=== PATIENT | female | born 1975 | race Caucasian/White ===

== ENCOUNTER 2020-10-01 14:07 | Outpatient (CLI) | payer BC, SELFPAY ==
--- NOTE | ~2020-10-01 | DEXA_ITS ---
Bone Density Report Name: Jodi Appiah Age: 45 Sex: Female Ethnicity: White Date of : 1975 Indication: nursing home use of contraception Referring Provider: LYNN, ALBER Study: Bone densitometry was performed. Exam Date: October 01, 2020 Accession number: [id number] Bone Density: Region BMD T-score Z-score Classification AP Spine (L1-L4) 1.030 -0.2 0.3 Normal Femoral Neck (Left) 0.892 0.4 0.8 Normal Total Hip (Left) 1.142 1.6 1.9 Normal Total Hip Bilateral Avg 1.133 1.6 1.9 Normal Femoral Neck (Right) 0.865 0.1 0.5 Normal Total Hip (Right) 1.123 1.5 1.8 Normal World Health Organization criteria for BMD impression classify patients as: Normal (T-score at or above -1.0), Osteopenia (T-score between -1.0 and -2.5), or Osteoporosis (T-score at or below -2.5). 10-year Fracture Risk: FRAX not reported because: Premenopausal woman All T-scores for Spine Total, Hip Total, Femoral Neck at or above -1.0 Clinical Information Provided by Patient: Smokes Has used the following medications: Vitamin D, depo x2 wks Patient maximum height was 63.5 No regular weight bearing exercise Does not regularly consume dairy products Drinks caffeinated beverages Onset of menses at age 11 Premenopausal Number of children 2 Impression: The patient's bone mass is within expected range for age, gender and ethnicity. The patient has risk factors, including: smoking. Discussion: BONE DENSITY IS WITHIN EXPECTED LIMITS FOR AGE, SEX AND RACE. Bone density is within expected limits for age, sex and race at all sites measured. The patient should follow a healthful lifestyle (good nutrition with adequate calcium and vitamin D, and appropriate weight-bearing exercise). Follow-Up: Consider repeating this study in 5 years or sooner if there is some new clinical indication. Reported by: [facility] on 10/01/2020 2:39:00 PM. Reviewed, dictated and finalized at location ALeida ANTONIO
--- NOTE | ~2020-10-01 | MM_ITS ---
EXAMINATION: MM screening jessica BI w boby HISTORY: Screening mammogram TECHNIQUE: Craniocaudal and mediolateral oblique 3-D tomosynthesis images were obtained and synthetic 2-D images were generated. CAD analysis was submitted and interpreted. COMPARISON: None, baseline BREAST PARENCHYMAL COMPOSITION: The breasts are heterogeneously dense, which may obscure small masses . FINDINGS: There is no evidence of suspicious mass, calcification, or architectural distortion to sugg est malignancy in either breast. There has been no suspicious interval change. IMPRESSION: 1. No mammographic evidence of malignancy. 2. Recommend routine screening mammography in one year. BI-RADS Category 1: Negative Reviewed, dictated and finalized at location A. ARE [employer] WORK[employer]
== END 2020-10-01 14:08 | disposition home or self-care (01) ==
PROVIDERS: PCP Family Medicine; Visit Provider Nurse Practitioner
DX: Z12.31 Encounter for screening mammogram for malignant neoplasm of breast (principal); Z13.820 Encounter for screening for osteoporosis; M81.0 Age-related osteoporosis without current pathological fracture; Z51.81 Encounter for therapeutic drug level monitoring; Z79.3 Long term (current) use of hormonal contraceptives
CPT/HCPCS: 77063; 77067; 77080

== ENCOUNTER 2021-02-04 09:22 | Emergency (ER) | payer BC, SELFPAY ==
--- NOTE | 2021-02-04 09:32 | ED.GENADULT ---
HPI - General Adult General Chief complaint: Chest Pain Stated complaint: SOB/CHEST PAIN Time Seen by Provider: 02/04/21 09:23 Source: patient and RN notes reviewed Mode of arrival: ambulatory Limitations: no limitations History of Present Illness HPI narrative: 45-year-old female presents with complaints of intermittent body aches, shortness of breath, chest pain, and headache (not the worst of her life) 50 minutes prior to [facility] to [facility]. Jodi reports receiving Depo-Provera at 07:54 this morning, symptoms started at 08:32, receiving Depo-Provera for 25 years to prevent . Benadryl 50mg at 08:50am, no relief. Denies difficulty swallowing and edema. No swelling, burning, bleeding, or drainage. Denies fever, chills, weakness, fatigue, myalgia, facial swelling, or tongue swelling. Denies nausea, vomiting, dizziness, lightheadedness, wheezing, syncopal episodes, or seizure activities. Tolerating po intake well. The patient reports she have not been diagnosed with COVID-19. The patient reports she received second COVID-19 vaccine on 01/29/2021. The patient reports she is not waiting for the results of a COVID-19 lab test. The patient reports she do not have a new or worsening cough. The patient reports she do not have any rhinorrhea, congestion, loss of taste, sore throat, abdominal pain, and diarrhea. Denies recent traveling. Denies concerns for COVID-19 or exposures been home with limited outdoor exposure except for essential household needs, work, and return home. At this time, patient is not suspected of having COVID-19. Some parts of this dictation were generated by voice recognition software and may contain typographical and/or grammatical inaccuracies. Related Data Home Medications Medication Instructions Recorded Confirmed ergocalciferol (vitamin D2) 02/04/21 Allergies Allergy/AdvReac Type Severity Reaction Status Date / Time latex Allergy Intermediate Verified 04/24/17 20:28 butorphanol Allergy Mild Unverified 04/24/17 20:28 Review of Systems Review of Systems: Narrative: CONSTITUTIONAL: Denies fever, chills, sweats. EYES: Denies visual changes, redness, discharge. ENT: Denies rhinorrhea, congestion, sore throat, otalgia. CARDIOVASCULAR: Denies chest pain, palpitations, edema. RESPIRATORY: Denies wheezing, cough. Complains of dyspnea. GASTROINTESTINAL: Denies abdominal pain, nausea, vomiting, diarrhea. GENITOURINARY: Denies dysuria, hematuria, abnormal discharge. SKIN: Denies rash, itching, or drainage. Complains of feeling as if hair is growing. MUSCULOSKELETAL: Complains of acute back pain. Denies joint pain or myalgia. NEUROLOGIC: Denies numbness or focal weakness. Complains of AMEZCUA. PSYCHIATRIC: Denies anxiety or depression. All systems reviewed & are unremarkable except as noted in HPI and below. [facility] Past Medical History Medical History Asthma Hx of migraines Obese Smoker Surgical History Surgical History (Updated 02/04/21 @ 11:30 by MUKUND Urias) No significant past surgical history Family History Family History (Updated 02/04/21 @ 11:30 by MUKUND Urias) Father Unknown family medical history Mother Hypertension Social History Social History (Updated 02/04/21 @ 11:32 by MUKUND Urias) Smoking packs per day: 0.5 Smoking cigarettes per day: 10.0 Years smoked: 25 Smoking pack-years: 12.50 Smoking status: Current every day smoker Tobacco type: cigarettes Second hand tobacco smoke exposure: Yes (spouse) Alcohol intake: former Alcohol use details: Jodi reports quit 10 years ago Substance use: never Living arrangements: with family Occupation/Education: occupation Gender identity (if verbalized by the patient): Female Sexual Orientation (if Verbalized by the Patient): Straight or Heterosexual Comments At time of signature, agree with nurse past medical, surgical, social, and family h
[2021-02-04 09:45] VITALS: BP 123/71; PULSE 82; RESP 20; TEMP 36.7; O2SAT 100
--- NOTE | 2021-02-04 09:45 | ECG_ITS ---
Measurements Intervals [place] Rate: 83 P: 49 OR: 163 QRS: -1 QRSD: 92 T: 40 QT: 356 QTc: 420 Interpretive Statements SINUS RHYTHM INCOMPLETE RIGHT BUNDLE BRANCH BLOCK BASELINE ARTIFACT- I, II, III, AVR, AVL, AVF, V2, V4-V5 BORDERLINE ECG Electronically Signed On 02-04-2021 11:13:34 CDT by Kraig Burleson D.O.
--- NOTE | 2021-02-04 10:11 | PC.NURSE ---
Patient much calmer. Resting easily. Got up and walked to bathroom without difficulty. Pain is less. No shortness of breath
--- NOTE | 2021-02-04 10:22 | PC.NURSE ---
Dozing. No pain. No anxiety. Feels much improved.
== END 2021-02-04 10:30 | disposition home or self-care (01) ==
PROVIDERS: Emergency Provider Nurse Practitioner Family; PCP Family Medicine
DX: F41.9 Anxiety disorder, unspecified (principal); M79.10 Myalgia, unspecified site; R06.02 Shortness of breath; R07.9 Chest pain, unspecified; R51.9 Headache, unspecified; T50.905A Adverse effect of unspecified drugs, medicaments and biological substances, initial encounter; I45.10 Unspecified right bundle-branch block
CPT/HCPCS: 93005; 99213; G0463

== ENCOUNTER 2021-04-22 12:26 | Outpatient (CLI) | payer BC, SELFPAY ==
--- NOTE | 2021-04-22 | ECHO_ITS ---
Patient Info Name: Jodi Appiah Age: 46 years : 1975 Gender: Female Ht: 63 in Wt: 200 lbs BSA: 2.05 m2 HR: 70 bpm BP: 120 / 85 mmHg Technical Quality: Good Exam Date: 04/22/2021 12:55 PM Exam Location: [facility] Pulmonary Patient Status: Outpatient Admit Date: 04/22/2021 Staff Ordering Physician: Caleb, Karoline Cuevas MD Nurse Head: Jolene Cardenas RDCS Attending Provider: Caleb, Karoline Cuevas MD Referring Physician: Caleb WALLACE; Exam Type: CA echo doppler color flow Study Info Indications R55 - Syncope and collapse Complete two-dimensional, color flow and Doppler transthoracic echocardiogram is performed. Summary 1. Complete two-dimensional, color flow and Doppler transthoracic echocardiogram is performed. 2. E/e' 5 is not elevated. 3. Global longitudinal strain is normal at -19.2%. 4. No pulmonary hypertension, estimated pulmonary arterial systolic pressure is 25 mmHg. Left Ventricle E/e' 5 is not elevated. Global longitudinal strain is normal at -19.2%. Left ventricular chamber dimension is normal. Left ventricular systolic function is normal, estimated at 60-65%. The left ventricular diastolic function is normal. Right Ventricle Right ventricular chamber dimension is normal. Right ventricular systolic function is normal. Left Atria Left atrial chamber dimension is normal. Right Atria Right atrial chamber dimension is normal. Aortic Valve The aortic valve is trileaflet. There is no aortic valve stenosis. There is no aortic valve regurgitation. Pulmonic Valve There is no pulmonic regurgitation. Mitral Valve There is no mitral valve stenosis. There is no mitral valve regurgitation. Tricuspid Valve There is no tricuspid valve regurgitation. No pulmonary hypertension, estimated pulmonary arterial systolic pressure is 25 mmHg. Pericardium/Pleural There is no pericardial effusion. Inferior Vena Cava Normal inferior vena cava with >50% collapse upon inspiration consistent with normal right atrial pressure, 5 mmHg. Aorta The aortic root size at the sinus of Valsalva is normal. Left Ventricular Outflow Tract Name Value Normal LVOT 2D LVOT Diameter 2.0 cm LVOT Doppler LVOT Peak Gradient 3 mmHg LVOT Mean Gradient 2 mmHg LVOT VTI 19 cm LVOT VTI/AV VTI Ratio 1.0 LVOT Stroke Volume 62 ml LVOT CO 4.7 l/min LVOT CI 2.3 l/min/m2 Pulmonic Valve Name Value Normal RVOT Doppler RVOT Peak Gradient 2 mmHg PV Doppler PV Peak Gradient 4 mmHg Mitral Valve
== END 2021-04-22 12:27 | disposition home or self-care (01) ==
LOC: ANHCARD 12:28
PROVIDERS: PCP Family Medicine; Visit Provider Family Medicine
DX: R55 Syncope and collapse (principal)
CPT/HCPCS: 93306

== ENCOUNTER 2021-06-21 14:05 | Emergency (ER) | payer BC, SELFPAY ==
--- NOTE | ~2021-06-21 | XR_ITS ---
EXAMINATION: XR chest 2V DATE: 06/21/2021 15:58 INDICATION: Cough and headache TECHNIQUE: AP and lateral views of the chest are obtained. COMPARISON: 04/24/2017 FINDINGS: There are minimal airspace opacities of the lung bases. There is no pleural effusion or pne umothorax. The cardiomediastinal silhouette is normal. There is mild thoracic spondylosis. IMPRESSION: 1. Minimal bibasilar airspace opacity, consistent with atelectasis versus pneumonia. Reviewed, dictated and finalized at location A. IMPRESSION: 1. Minimal bibasilar airspace opacity, consistent with atelectasis versus pneum onia.
[2021-06-21 14:21] VITALS: BP 125/112; PULSE 77; RESP 18; TEMP 36.9; O2SAT 100
[2021-06-21 14:39] LABS: Basophils Absolute Auto 0.1 K/mm3 (0.0-0.1); Basophils Percent Auto 0.6 % (0.2-1.2); Eosinophils Absolute Auto 0.3 K/mm3 (0-0.3); Eosinophils Percent Auto 4.3 % (0-4.4); Hematocrit 45.8 % (37.0-47.0); Hemoglobin 14.9 g/dL (12.0-15.0); Immature Granulocyte Absolute 0.03 K/mm3 (0.00-0.031); Immature Granulocyte Percent A 0.4 % (0-0.5); Lymphocytes Absolute Auto 2.04 K/mm3 (0.9-3.2); Lymphocytes Percent Auto 25.6 % (18.3-44.2); Mean Corpuscular HGB Conc 32.5 g/dl (32-36); Mean Corpuscular Hemoglobin 28.7 pg (26-34); Mean Corpuscular Volume 88.1 fl (80-100); Mean Platelet Volume 10.2 fl (7.4-10.4); Monocytes Absolute Auto 0.5 K/mm3 (0.1-0.6); Monocytes Percent Auto 6.2 % (2.6-8.5); Neutrophils Percent Auto 62.9 % (45.5-73.1); Platelet Count Result 310 k/mm3 (150-375); Red Cell Distribution Width 13.2 % (11.5-14.5)
[2021-06-21 15:20] LABS: Alanine Aminotransferase 21 U/L (4-35); Albumin Level 4.6 g/dL (3.5-5.1); Alkaline Phosphatase 64 U/L (38-126); Anion Gap 11 mmol/L (8-16); Aspartate Amino Transferase 20 U/L (14-36); Bilirubin,Total 0.8 mg/dL (0.2-1.3); Blood Urea Nitrogen 5 mg/dL (7-17); Calcium 9.9 mg/dL (8.4-10.2); Carbon Dioxide 25 mmol/L (22-30); Chloride 104 mmol/L (98-107); Estimated CRCL calculation 93 ml/min; Estimated Glomerular Filt Rate > 60; Glucose 102 mg/dL (65-110); Potassium 3.7 mmol/L (3.4-5.0); Sodium 140 mmol/L (137-145)
[2021-06-21] MEDS: PROCHLORPERAZINE EDISYLATE 10 MG/2 ML VIAL IV PUSH (15:56)
[2021-06-21] MEDS: ACETAMINOPHEN 500 MG TABLET 1000 MG PO (15:56)
[2021-06-21] MEDS: SODIUM CHLORIDE 0.9% IV 1,000 ML 999 ML IV CONT (15:56)
[2021-06-21] MEDS: KETOROLAC 30 MG/ML VIAL (*BKC) (15:56)
[2021-06-21] MEDS: diphenhydrAMINE HCl INJ 50 MG/ML VIAL 25 MG IV PUSH (15:57)
[2021-06-21 16:23] LABS: Lipase 413 U/L (23-300)
--- NOTE | 2021-06-21 16:35 | ED.HA ---
HPI - Headache General Chief Complaint: Headache Stated Complaint: Headache, vomiting Time Seen by Provider: 06/21/21 15:33 History of Present Illness HPI Narrative: Patient presents with headache. Patient reports she has had cough congestion for the past few days Primary care doctor and was started on antibiotics. Since taking antibiotics feels her symptoms of gotten worse her headache is been getting worse and is now associated with nausea and vomiting. she reports history of migraines however today symptoms are worse than her prior migraines. Headache is exacerbated by bright lights loud noises. She denies any changes in vision, change in hearing, focal numbness or weakness Related Data Home Medications Medication Instructions Recorded Confirmed ergocalciferol (vitamin D2) 02/04/21 ubrogepant [Ubrelvy] mg 06/21/21 Allergies Allergy/AdvReac Type Severity Reaction Status Date / Time butorphanol Allergy Mild Unknown Verified 06/21/21 15:23 Review of Systems Review of Systems: CONSTITUTIONAL: Short subjective chills EYES: Denies visual changes, redness, or discharge. ENT: She reports cough, congestion CARDIOVASCULAR: Denies chest pain, palpitations, or edema. RESPIRATORY: Denies cough or dyspnea. GASTROINTESTINAL: Denies abdominal pain GENITOURINARY: Denies dysuria or hematuria. SKIN: Denies rash or itching. MUSCULOSKELETAL: Denies back pain, joint pain, or myalgia. NEUROLOGIC: Denies headache, numbness, dizziness, or weakness. PSYCHIATRIC: Denies anxiety or depression. All systems reviewed & are unremarkable except as noted in HPI and below PMFSH Past Medical History Medical History Asthma Hx of migraines Obese Smoker Surgical History Surgical History (Updated 02/04/21 @ 11:30 by MUKUND Urias) No significant past surgical history Family History Family History (Updated 02/04/21 @ 11:30 by MUKUND Urias) Father Unknown family medical history Mother Hypertension Social History Social History (Updated 02/04/21 @ 11:32 by MUKUND Urias) Smoking packs per day: 0.5 Smoking cigarettes per day: 10.0 Years smoked: 25 Smoking pack-years: 12.50 Smoking status: Current every day smoker Tobacco type: cigarettes Second hand tobacco smoke exposure: Yes (spouse) Alcohol intake: former Alcohol use details: Jodi reports quit 10 years ago Substance use: never Gender identity (if verbalized by the patient): Female Exam Narrative: GENERAL: Well-appearing, well-nourished, and in no acute distress. HEAD: Normocephalic, atraumatic. EYES: PERRLA and EOMI. ENT: Mucous membranes moist. Oropharynx without tonsillar hypertrophy exudate or other lesions. NECK: Supple. No adenopathy or masses. No JVD CHEST: Clear to auscultation. No respiratory distress. No wheezes rales or rhonchi HEART: Regular rate and rhythm. No murmur heard. Normal peripheral pulses. ABDOMEN: Soft, nontender, nondistended, normal active bowel sounds. EXTREMITIES: Normal range of motion. No edema. SKIN: Warm, dry, no rash. NEURO: Cranial nerves II through XII intact, 5 out of 5 strength in all extremities sensation intact to light touch in all extremities. Alert and oriented x3. PSYCH: Normal mood and affect. Course Reevaluation(s) Reevaluation #1: Patient reports feeling much improved labs and plan reviewed with patient Date: 06/21/21 Time: 17:33 Vital Signs Vital signs: Vital Signs Temperature 36.9 C 06/21/21 14:21 Pulse Rate 77 06/21/21 14:21 Respiratory Rate 18 06/21/21 14:21 Blood Pressure 125/112 H 06/21/21 14:21 Pulse Oximetry 100 06/21/21 14:21 Temperature 36.9 C 06/21/21 14:21 Pulse Rate 77 06/21/21 14:21 Respiratory Rate 16 06/21/21 17:50 Blood Pressure 128/75 06/21/21 17:50 Pulse Oximetry 98 06/21/21 17:50 MDM - Headache MDM Narrative Medical decision making narrative: H&P as above, vss, pt looks clinically w
[2021-06-21 17:50] VITALS: BP 128/75; RESP 16; O2SAT 98
[2021-06-22 18:06] LABS: SARS-CoV-2 RNA PCR Negative
== END 2021-06-21 17:51 | disposition home or self-care (01) ==
PROVIDERS: Emergency Medicine; Emergency Provider Emergency Medicine; PCP Family Medicine
DX: G43.909 Migraine, unspecified, not intractable, without status migrainosus (principal); J18.9 Pneumonia, unspecified organism; Z20.822 Contact with and (suspected) exposure to COVID-19; J45.909 Unspecified asthma, uncomplicated; F17.210 Nicotine dependence, cigarettes, uncomplicated
CPT/HCPCS: 36415; 71046; 80053; 83690; 85025; 96374; 96375; 99284; A9270; C9803; J0780; J1200; J1885; J7030; U0003; U0005

== ENCOUNTER 2021-06-22 04:50 | Observation (INO) | payer BC, SELFPAY ==
[2021-06-22] VITALS (9 sets, daily range): BP systolic 107–119; BP diastolic 50–90; PULSE 64–90; RESP 14–16; TEMP 36.2–37.1; O2SAT 95–100; BMI 38.2
--- NOTE | ~2021-06-22 | CT_ITS ---
EXAMINATION: CT brain wo con DATE: 06/22/2021 07:47 INDICATION: Headache TECHNIQUE: Computed tomography (CT) of the head was performed without intravenous contrast. Sagittal and coronal reconstructions were performed. The mA was adjusted according to patient size. Iterative reconstruction technique was employed. The dose-length product was 605.33 mGy-cm. COMPARISON: None FINDINGS: No acute intracranial hemorrhage, acute infarction or abnormal extra axial fluid collection. Ventricl es are normal and symmetric. No mass/mass effect. The orbits and mastoid air cells are normal. Exten sive sinus disease including some bubbly mucus in the right sphenoid sinus, near complete opacificati on of the left maxillary sinus and several left-sided ethmoid air cells and additional mucosal thicke vipul, moderate in the left maxillary sinus and mild in the remaining paranasal sinuses. Postoperative changes of bilateral maxillary sinus antral window procedures. IMPRESSION: 1. Extensive sinusitis most prominent in the left sphenoid and ethmoid sinuses. 2. Normal brain. No acute intracranial process. Reviewed, dictated and finalized at location A.
--- NOTE | ~2021-06-22 | CT_ITS ---
EXAMINATION: CT sinus wo con DATE: 06/23/2021 13:24 INDICATION: Frontal headache, pressure. Sinusitis. Photophobia. TECHNIQUE: Computed tomography (CT) of the paranasal sinuses was performed without contrast. Iterativ e reconstruction technique was employed. Exam dose: 269.96 mGy-cm total exam DLP. COMPARISON: None FINDINGS: There is rightward deviation of the nasal septum and a prominent bony spur projecting right roque from the nasal septum. There is prominent asymmetric soft tissue swelling of the left middle and inferior nasal turbinates. Majo bullosa of the middle nasal turbinates. Interlamellar cell of both middle nasal turbinates, opacified on the left. There is bilateral frontoethmoid soft tissue thickening. There is opacification of ethmoid air cells laterally, particularly prominent on the left. There is complete opacification of the left ostiomeatal unit and severe mucoperiosteal thickening of the left maxillary sinus. There is mild soft tissue thickening at the right maxillary ostium and right infundibulum. There is m ild focal mucoperiosteal thickening of the right maxillary sinus. There is near-complete complete opacification of left sphenoid sinus and mild mucoperiosteal thickeni ng of the right sphenoid sinus. The mastoid air cells are better developed on the right and largely well aerated bilaterally. IMPRESSION: Rightward deviation spurring of the nasal septum Bilateral majo bullosa and interlamellar cell of the middle nasal turbinates; opacified interlamell ar cell on the left Asymmetric soft tissue swelling of the left middle and inferior nasal turbinates Mild soft tissue thickening in the region of the right maxillary ostium and infundibulum Complete opacification of the left ostiomeatal unit Soft tissue thickening of the region of both frontoethmoid recesses Mild right and extensive left ethmoid air cell opacification Mild focal right maxillary sinus mucoperiosteal thickening; severe left maxillary mucoperiosteal thic kening Complete opacification of left sphenoid sinus; mild mucoperiosteal thickening of the right sphenoid s inus Reviewed, dictated and finalized at Location A. Reviewed, dictated and finalized at location B. IMPRESSION: Rightward deviation spurring of the nasal septum Bilateral majo bullosa and interlamellar cell of the middle nasal turbinates; opacified interlamellar cell on the left Asymmetric soft tissue swelling of the left middle and inferior nasal turbinate s Mild soft tissue thickening in the region of the right maxillary ostium and inf undibulum Complete opacification of the left ostiomeatal unit Soft tissue thickening of the region of both frontoethmoid recesses Mild right and extensive left ethmoid air cell opacification Mild focal right maxillary sinus mucoperiosteal thickening; severe left maxilla ry mucoperiosteal thickening Complete opacification of left sphenoid sinus; mild mucoperiosteal thickening o f the right sphenoid sinus
--- NOTE | 2021-06-22 06:22 | PC.NURSE ---
pt ambulated up to intake desk w/ no difficulties w/ no mask on. this rn asked pt to please put her mask back on her face appropriately. pt placed mask back on her face and then just stared at this rn. this rn informed pt that as soon as we can get her back to a room that we will. pt ambulated back to her seat w/ no difficulties.
--- NOTE | 2021-06-22 07:30 | PC.NURSE ---
bedside report from FEDERICO Levy. care assumed at this time.
--- NOTE | 2021-06-22 07:33 | PC.NURSE ---
pt stating she can't think straight d/t head pain when asked by this RN if she would like to fill out consent for LP. this procedure was explained by EDP.
[2021-06-22] MEDS: diphenhydrAMINE HCl INJ 50 MG/ML VIAL 25 MG IV PUSH (07:42)
[2021-06-22] MEDS: SODIUM CHLORIDE 0.9% IV 1,000 ML 999 ML IV CONT ×2 (07:42)
--- NOTE | 2021-06-22 07:46 | PC.NURSE ---
EDP made aware pt not signing consent or refusal at this time.
[2021-06-22] MEDS: PROCHLORPERAZINE EDISYLATE 10 MG/2 ML VIAL IV PUSH (07:54)
--- NOTE | 2021-06-22 07:54 | ED.HA ---
HPI - Headache General Chief Complaint: Headache Stated Complaint: migraine Time Seen by Provider: 06/22/21 07:08 Source: patient, RN notes reviewed and old records reviewed Mode of arrival: ambulatory Limitations: no limitations History of Present Illness HPI Narrative: This is a 46 year old female with history of migraine headaches who presents for evaluation of a headache. She reports constant diffuse headache for 2 days. She reports having migraine headaches for years but this headache is more severe in its intensity. She took Tylenol 4 hours ago for her pain. She was evaluated in ED yesterday for her headache. She was given IVF and medication. She states her pain was only mild better but when she returned home her headache became worse again. She reports associated runny nose, congestion, nausea and vomiting. She also reports blurred vision. She is unsure if she has had an imaging or testing for her migraines but she takes Ubrelvy. Headache is 10/10. Related Data Home Medications Medication Instructions Recorded Confirmed ergocalciferol (vitamin D2) 1,250 mcg PO 2XW 02/04/21 06/22/21 ubrogepant [Ubrelvy] 100 mg PO DAILY PRN 06/21/21 06/22/21 albuterol sulfate 1 puff INHALATION TID PRN 06/22/21 06/22/21 escitalopram oxalate 20 mg PO QAM 06/22/21 06/22/21 ondansetron 4 mg PO Q8H PRN 06/22/21 06/22/21 topiramate 100 mg PO HS 06/22/21 06/22/21 Allergies Allergy/AdvReac Type Severity Reaction Status Date / Time butorphanol Allergy Mild Unknown Verified 06/22/21 12:37 Review of Systems Review of Systems: All systems reviewed & are unremarkable except as noted in HPI and below PMFSH Past Medical History Medical History Asthma COVID-19 vaccine series completed (~12/2020) Maderna Migraines Obese Smoker Surgical History Surgical History No significant past surgical history Family History Family History (Updated 06/22/21 @ 14:57 by Marzena Eldridge DO) Father No significant past medical history Mother Hypertension Grandparent Breast cancer Social History Social History (Updated 06/22/21 @ 15:05 by Marzena Eldridge DO) Social History: She lives in [facility] with her of 5 years. She has a 26-year-old son who is healthy. She has smoked a half a pack of cigarettes per day since she was a teenager. She used to intermittently drink heavy in her younger years but has not drank any alcohol in at least 10 years. She is employed as a banker. Primary care physician: Dr. Karoline Ellis Code status: Full code Surrogate decision maker: Smoking packs per day: 0.5 Smoking cigarettes per day: 10.0 Years smoked: 25 Smoking pack-years: 12.50 Smoking status: Current every day smoker Tobacco type: cigarettes Second hand tobacco smoke exposure: Yes (spouse) Alcohol intake: former Alcohol use details: Jodi reports quit 10 years ago Substance use: never Gender identity (if verbalized by the patient): Female Spiritual care concerns: No Exam Const: General: no acute distress and alert Orientation/consciousness: patient oriented x3 HENMT: Head: normocephalic and atraumatic Ears: TM's normal bilaterally General nose exam: Abnormal mucous membranes and turbinates present Face and sinus: sinus tenderness frontal (left) and maxillary (left) Mouth: Yes Normal oral and palatal mucosa present, Yes lip normal, Yes oropharynx normal and Yes moist mucous membranes Throat: posterior oropharynx normal Eyes: Pupils: Equal, round and reactive pupils present EOM: EOMs intact bilaterally Neck: Neck: normal visual inspection Chest: Chest palpation & inspection: normal inspection of the chest Resp: Effort & Inspection: normal respiratory effort and no retractions Auscultation: clear to auscultation bilaterally Cardio: Rate: regular rate Rhythm: regular rhythm Heart mili
[2021-06-22] MEDS: KETOROLAC 30 MG/ML VIAL (*BKC) IV PUSH ×2 (09:18→14:20)
[2021-06-22] MEDS: HYDROmorphone HCL INJ (*CRX) 1 MG/ML SYR IV PUSH (09:22)
[2021-06-22 09:52] LABS: Basophils Absolute Auto 0.1 K/mm3 (0.0-0.1); Basophils Percent Auto 0.3 % (0.2-1.2); Eosinophils Percent Auto 0.2 % (0-4.4); Hematocrit 39.4 % (37.0-47.0); Immature Granulocyte Absolute 0.05 K/mm3 (0.00-0.031); Immature Granulocyte Percent A 0.3 % (0-0.5); Lymphocytes Absolute Auto 1.08 K/mm3 (0.9-3.2); Lymphocytes Percent Auto 7.3 % (18.3-44.2); Mean Corpuscular Hemoglobin 28.8 pg (26-34); Mean Corpuscular Volume 87.2 fl (80-100); Mean Platelet Volume 10.2 fl (7.4-10.4); Monocytes Absolute Auto 0.8 K/mm3 (0.1-0.6); Monocytes Percent Auto 5.6 % (2.6-8.5); Neutrophils Absolute Auto 12.8 K/mm3 (1.3-6.7); Neutrophils Percent Auto 86.3 % (45.5-73.1); Platelet Count Result 265 k/mm3 (150-375); Red Blood Count 4.52 M/mm3 (4.2-5.4); Red Cell Distribution Width 13.2 % (11.5-14.5); White Blood Count 14.8 K/mm3 (4.5-10.0)
[2021-06-22 10:08] LABS: Alanine Aminotransferase 17 U/L (4-35); Albumin Level 3.9 g/dL (3.5-5.1); Alkaline Phosphatase 55 U/L (38-126); Anion Gap 9 mmol/L (8-16); Aspartate Amino Transferase 19 U/L (14-36); Bilirubin,Total 0.8 mg/dL (0.2-1.3); Blood Urea Nitrogen 3 mg/dL (7-17); Calcium 8.4 mg/dL (8.4-10.2); Carbon Dioxide 23 mmol/L (22-30); Chloride 106 mmol/L (98-107); Estimated Glomerular Filt Rate > 60; Glucose 125 mg/dL (65-110); Potassium 3.4 mmol/L (3.4-5.0); Sodium 138 mmol/L (137-145)
[2021-06-22 10:13] LABS: Prothrombin Time 12.6 Seconds (11.1-14.7)
[2021-06-22 10:14] LABS: Partial Thromboplastin Time 29.9 SECONDS (22.3-36.8)
--- NOTE | 2021-06-22 12:27 | ADMGEN ---
This patient, Jodi Appiah, was admitted to [facility] Surg Room 328-01. Patient/family oriented to hospital policies and general routines including ID bracelet, bed and alarms, visiting hours, pain management, procedures, bathroom and other care routines, personal items, smoking policy, room service/diet, and visiting hours. Information on how to activate the Rapid Response Team has been discussed. Patient/Family are encouraged to report perceived risks to care and to ask questions if they do not understand what they are told or what they should do.
[2021-06-22] MEDS: SODIUM CHLORIDE 0.9% IV 1,000 ML 125 ML IV CONT ×2 (12:42→20:59)
[2021-06-22] MEDS: PSEUDOEPHEDRINE HCL 30 MG TABLET 60 MG PO (14:21)
--- NOTE | 2021-06-22 14:54 | PM.IMHP ---
H&P: HPI History of Present Illness Date/Time: 06/22/21 14:15 Chief Complaint: Headache Narrative: 46-year-old female with a past medical history of obesity, migraines and tobacco use who presented to the ER initially on 06/21/2021 for migraine. she reports that on she began having a lot of sneezing. She took some Benadryl which seemed to help with the sneezing but it returned that evening. She then used [id number]-hzggysm Sudafed and Tylenol cold and sinus without any relief in her symptoms. She was also having significant postnasal drip , rhinorrhea, nasal congestion and new onset of snoring. She called her primary care physician on Sunday and was prescribed amoxicillin once a day. on Tuesdays she developed a generalized severe headache consistent with her usual migraine. She took her usual home prescription migraine relief medication without help. She came to the ER last night as her pain was a 10/10 in intensity and received a migraine cocktail which completely relieved her headache. However a few hours after returning home her headache returned. She was discharged from the ER with a prescription for azithromycin. She took the 1st dose of azithromycin last night . She was tested for COVID-19 during her 1st ER visit and results are pending. She denies any recent ill contacts. She reports that all of the people she works with have been vaccinated. She received her COVID vaccine at in December. She reports significant on a pressure and pain over the right frontal and maxillary sinuses. She reports that when her headache returned with a 10/10 in intensity and she had some light sensitivity with associated nausea. She did have a few episodes of emesis of mucousy material. She denies any cough or congestion. She has not had any fevers or chills. She has reported some mild blurring of vision of her left eye which is not unusual when she has a severe headache. Review of Systems Review of Systems: 12 systems were reviewed with pertinent positives and negatives per HPI. Except as documented in the HPI, all other systems were reviewed and are negative. [facility] Past Medical History Medical History Asthma COVID-19 vaccine series completed (~12/2020) Maderna Migraines Obese Smoker Surgical History Surgical History No significant past surgical history Family History Family History (Updated 06/22/21 @ 14:57 by Marzena Eldridge DO) Father No significant past medical history Mother Hypertension Grandparent Breast cancer Social History Social History (Updated 06/22/21 @ 15:05 by Marzena Eldridge DO) Social History: She lives in [facility] with her of 5 years. She has a 26-year-old son who is healthy. She has smoked a half a pack of cigarettes per day since she was a teenager. She used to intermittently drink heavy in her younger years but has not drank any alcohol in at least 10 years. She is employed as a banker. Primary care physician: Dr. Karoline Ellis Code status: Full code Surrogate decision maker: Smoking packs per day: 0.5 Smoking cigarettes per day: 10.0 Years smoked: 25 Smoking pack-years: 12.50 Smoking status: Current every day smoker Tobacco type: cigarettes Second hand tobacco smoke exposure: Yes (spouse) Alcohol intake: former Alcohol use details: Jodi reports quit 10 years ago Substance use: never Gender identity (if verbalized by the patient): Female Spiritual care concerns: No Meds Home Medications and Allergies Home Medications Medication Instructions Recorded Confirmed Type ergocalciferol (vitamin D2) 50,000 unit PO DAILY 02/04/21 06/22/21 History azithromycin See Rx Instructions .ROUTE 06/21/21 Rx .COMPLEX #6 tablet ubrogepant [Ubrelvy] 100 mg PO DAILY PRN 06/21/21 06/22/21 History albuterol sulfate 1 puff INHALATION TID PRN 06/22/21 06/22/21 Histo
[2021-06-22] MEDS: FLUTICASONE PROPIONATE 0.05% NA SPR 16 GM BTL (*BKC) 2 SPRAY NASAL (16:54)
[2021-06-22] MEDS: ONDANSETRON INJ 4 MG/2 ML VIAL IV PUSH (20:57)
[2021-06-23] MEDS: KETOROLAC 30 MG/ML VIAL (*BKC) IV PUSH ×3 (00:49→21:38)
[2021-06-23] MEDS: PSEUDOEPHEDRINE HCL 30 MG TABLET 60 MG PO ×4 (00:49→21:29)
[2021-06-23 06:00] VITALS: BP 118/72; PULSE 80; RESP 20; TEMP 36.8; O2SAT 97
[2021-06-23 06:43] LABS: Basophils Absolute Auto 0.1 K/mm3 (0.0-0.1); Basophils Percent Auto 0.7 % (0.2-1.2); Eosinophils Percent Auto 12.3 % (0-4.4); Hematocrit 34.2 % (37.0-47.0); Immature Granulocyte Absolute 0.03 K/mm3 (0.00-0.031); Immature Granulocyte Percent A 0.4 % (0-0.5); Lymphocytes Absolute Auto 2.27 K/mm3 (0.9-3.2); Lymphocytes Percent Auto 27.2 % (18.3-44.2); Mean Corpuscular HGB Conc 32.2 g/dl (32-36); Mean Corpuscular Hemoglobin 28.4 pg (26-34); Mean Corpuscular Volume 88.4 fl (80-100); Mean Platelet Volume 10.4 fl (7.4-10.4); Monocytes Percent Auto 12.2 % (2.6-8.5); Neutrophils Absolute Auto 3.9 K/mm3 (1.3-6.7); Neutrophils Percent Auto 47.2 % (45.5-73.1); Platelet Count Result 215 k/mm3 (150-375); Red Blood Count 3.87 M/mm3 (4.2-5.4); Red Cell Distribution Width 13.2 % (11.5-14.5); White Blood Count 8.4 K/mm3 (4.5-10.0)
[2021-06-23 06:51] LABS: Alanine Aminotransferase 12 U/L (4-35); Alkaline Phosphatase 43 U/L (38-126); Anion Gap 7 mmol/L (8-16); Aspartate Amino Transferase 12 U/L (14-36); Bilirubin,Total 0.9 mg/dL (0.2-1.3); Blood Urea Nitrogen 2 mg/dL (7-17); Calcium 8.2 mg/dL (8.4-10.2); Carbon Dioxide 23 mmol/L (22-30); Chloride 105 mmol/L (98-107); Estimated CRCL calculation 132 ml/min; Estimated Glomerular Filt Rate > 60; Glucose 103 mg/dL (65-110); Potassium 3.2 mmol/L (3.4-5.0); Sodium 135 mmol/L (137-145)
[2021-06-23] MEDS: ESCITALOPRAM OXALATE 10 MG TABLET 20 MG PO (09:08)
[2021-06-23] MEDS: CALCIUM CARBONATE (TUMS) 500 MG (200 MG ELEMENTAL) PO (09:08)
[2021-06-23] MEDS: PANTOPRAZOLE SOD SESQUIHYDRATE 20 MG TAB PO (09:09)
[2021-06-23] MEDS: FLUTICASONE PROPIONATE 0.05% NA SPR 16 GM BTL (*BKC) 2 SPRAY NASAL (09:09)
[2021-06-23] MEDS: LORATADINE 10 MG TABLET PO (09:09)
--- NOTE | 2021-06-23 12:00 | PM.IMPN ---
Progress Note: A&P Assessment and Plan (1) Sinusitis, acute: Code(s): J01.90 - Acute sinusitis, unspecified Status: Acute Assessment and Plan: CT of the brain showed extensive sinusitis - patient is still having symptoms that are distressing to her but no neurological deficits - will obtain CT of the sinuses - switch azithromycin to Unasyn with plans of discharging on Augmentin - will prescribe Afrin - spoke with ENT and they plan to see her tomorrow. they also recommended steroids which have been ordered (2) Headache: Qualifiers: Headache type: unspecified Headache chronicity pattern: acute headache Intractability: intractable Qualified Code(s): R51.9 - Headache, unspecified Code(s): R51.9 - Headache, unspecified Status: Acute Assessment and Plan: as above (3) Anxiety and depression: Code(s): F41.9 - Anxiety disorder, unspecified; F32.9 - Major depressive disorder, single episode, unspecified Status: Acute Assessment and Plan: continue escitalopram Time Spent With Patient Time with patient: 25 - 35 minutes Subjective Date/time seen: 06/23/21 12:00 Interval history: Pt is a 46-year-old female here for sinusitis. Patient was seen today and states that her headache is still pretty bad but she rates it a 6/10. She her has double vision that she had in the ER yesterday. She is battling some nausea. she says the light makes her headache worse. She is not able to eat very much due to her nausea. She has no history of issues with penicillin. She denies chest pain, shortness of breath, fevers, chills, or leg swelling. Review of Systems Review of Systems: All systems reviewed & are unremarkable except as noted in HPI and below Exam Narrative: General: Well developed well nourished patient in NAD HEENT: normocephalic, Facial pain mostly on the left side near the maxillary and ethmoid area. Normal ocular movements. Pain to the left temporal region as well Neck: supple Neuro: Alert and oriented x4. cranial nerves 2-12 intact. Equal strength the upper lower extremities 5/5. Able to do [id number]. no meningeal signs CV:RRR Resp: slightly decreased breath sounds, no crackles or wheezing Abd: Soft, non distended. No pain to palpation. Positive bowel sounds Extremities: No swelling, erythema, or pain to palpation. Objective Data Vital Signs Vital Signs: Vital Signs - 24 hr 06/22/21 12:25 06/22/21 14:00 06/22/21 14:47 Temperature 97.2 F L 98.8 F Pulse Rate 73 86 Respiratory Rate 16 14 Blood Pressure 109/57 L 107/50 L Pulse Oximetry 98 99 98 06/22/21 22:00 06/23/21 06:00 Temperature 97.9 F 98.3 F Pulse Rate 75 80 Respiratory Rate 16 20 Blood Pressure 110/64 118/72 Pulse Oximetry 99 97 Intake/Output Intake/Output: Intake & Output 06/20/21 06/21/21 06/22/21 06/23/21 23:59 23:59 23:59 23:59 Intake Total 4525 1500 Balance 4525 1500 Meds/Results Medications: Active Medications Generic Name Dose Route Start Last Admin Trade Name Freq PRN Reason Stop Dose Admin Albuterol 2 puff 06/22/21 15:01 Albuterol Sulfate (*Sp) Aerosol 1 Puff INHALATION TID PRN Shortness Of Breath Or Wheezing Calcium Carbonate 200 mg 06/23/21 08:31 06/23/21 09:08 Calcium Carbonate (Tums) 500 Mg (200 Mg Elemental) PO 200 mg Q6H PRN Administration Indigestion Escitalopram Oxalate 20 mg 06/23/21 09:00 06/23/21 09:08 Escitalopram Oxalate 10 Mg Tablet PO 20 mg QAM RAVI Administration Fluticasone Propionate 2 spray 06/22/21 15:00 06/23/21 09:09 Fluticasone Propionate 0.05% Na Spr 16 Gm Btl (*Bkc) NASAL 2 spray QAM RAVI Administration Hydromorphone HCl 0.5 mg 06/22/21 10:48 Hydromorphone Hcl Inj (*Crx) 1 Mg/Ml Syr IV PUSH Q4H PRN Pain Rated 7-10 Sodium Chloride 1,000 mls @ 100 mls/hr 06/22/21 10:50 06/23/21 09:09 Normal Saline Iv IV CONT Not Given
[2021-06-23] MEDS: AMPICILLIN SULB 3 GM/NS 100 ML 3 GM/100 ML VIAL IVPB ×2 (12:20→17:32)
[2021-06-23] MEDS: OXYMETAZOLINE HCL 0.05% NAS 15 ML BTL (*BKC) 1 SPRAY NASAL ×2 (12:21→21:23)
[2021-06-23] MEDS: POTASSIUM CHLORIDE 20 MEQ TABLET 40 MEQ PO (12:21)
[2021-06-23] MEDS: DEXAMETHASONE SOD PHOS INJ 4 MG/ML VIAL 8 MG IV PUSH (12:23)
[2021-06-23] MEDS: ONDANSETRON INJ 4 MG/2 ML VIAL IV PUSH (12:30)
[2021-06-23 14:00] VITALS: BP 114/61; PULSE 72; RESP 20; TEMP 36.7; O2SAT 99
[2021-06-23] MEDS: SODIUM CHLORIDE 0.9% IV 1,000 ML 125 ML IV CONT (17:32)
[2021-06-23 20:00] VITALS: PULSE 72; RESP 20; O2SAT 99
[2021-06-23] MEDS: TOPIRAMATE 100 MG TABLET PO (21:23)
[2021-06-24] MEDS: AMPICILLIN SULB 3 GM/NS 100 ML 3 GM/100 ML VIAL IVPB ×3 (01:11→12:02)
[2021-06-24] MEDS: SODIUM CHLORIDE 0.9% IV 1,000 ML 125 ML IV CONT (03:42)
[2021-06-24] MEDS: KETOROLAC 30 MG/ML VIAL (*BKC) IV PUSH (03:43)
[2021-06-24 06:00] VITALS: BP 112/63; PULSE 69; RESP 18; TEMP 36.3; O2SAT 99
[2021-06-24 06:47] LABS: Hematocrit 33.4 % (37.0-47.0); Hemoglobin 10.8 g/dL (12.0-15.0); Mean Corpuscular HGB Conc 32.3 g/dl (32-36); Mean Corpuscular Hemoglobin 28.3 pg (26-34); Mean Corpuscular Volume 87.4 fl (80-100); Mean Platelet Volume 10.6 fl (7.4-10.4); Platelet Count Result 234 k/mm3 (150-375); Red Blood Count 3.82 M/mm3 (4.2-5.4); Red Cell Distribution Width 13.2 % (11.5-14.5); White Blood Count 10.9 K/mm3 (4.5-10.0)
[2021-06-24 07:04] LABS: Anion Gap 4 mmol/L (8-16); Blood Urea Nitrogen 3 mg/dL (7-17); Calcium 8.5 mg/dL (8.4-10.2); Carbon Dioxide 25 mmol/L (22-30); Chloride 105 mmol/L (98-107); Estimated CRCL calculation 132 ml/min; Estimated Glomerular Filt Rate > 60; Glucose 102 mg/dL (65-110); Potassium 3.2 mmol/L (3.4-5.0); Sodium 134 mmol/L (137-145)
[2021-06-24] MEDS: PANTOPRAZOLE SOD SESQUIHYDRATE 20 MG TAB PO (08:13)
[2021-06-24] MEDS: CALCIUM CARBONATE (TUMS) 500 MG (200 MG ELEMENTAL) PO (08:13)
[2021-06-24] MEDS: PSEUDOEPHEDRINE HCL 30 MG TABLET 60 MG PO (08:13)
[2021-06-24] MEDS: POTASSIUM CHLORIDE 20 MEQ TABLET 40 MEQ PO (08:13)
[2021-06-24] MEDS: predniSONE 20 MG TABLET 40 MG PO (08:13)
[2021-06-24] MEDS: LORATADINE 10 MG TABLET PO (08:13)
[2021-06-24] MEDS: OXYMETAZOLINE HCL 0.05% NAS 15 ML BTL (*BKC) 1 SPRAY NASAL (08:14)
[2021-06-24] MEDS: FLUTICASONE PROPIONATE 0.05% NA SPR 16 GM BTL (*BKC) 2 SPRAY NASAL (08:14)
--- NOTE | 2021-06-24 10:40 | PM.DS ---
DS: Admitting Diagnosis Admitting Diagnosis sinusitis DS: Discharge Diagnosis Discharge Diagnosis (1) Sinusitis, acute: Code(s): J01.90 - Acute sinusitis, unspecified Status: Acute Assessment and Plan: CT of the brain showed extensive sinusitis but no errosion into the brain -pts symptoms better and is discharged on Augmentin, afrin, and Medrol Dosepak -no neurological deficits - spoke with ENT, follow up outpt (2) Headache: Qualifiers: Headache type: unspecified Headache chronicity pattern: acute headache Intractability: intractable Qualified Code(s): R51.9 - Headache, unspecified Code(s): R51.9 - Headache, unspecified Status: Acute Assessment and Plan: improving with treatment (3) Anxiety and depression: Code(s): F41.9 - Anxiety disorder, unspecified; F32.9 - Major depressive disorder, single episode, unspecified Status: Acute Assessment and Plan: continue escitalopram DS: Summary Hospital Course Hospital Course: [facility] 06/24/21 Patient is a 46-year-old female with a history of chronic headaches who presented emergency room for headache and sinus pressure. vitals in the ER were temperature 97.6?, pulse 90, respiratory rate 18, blood pressure 107/59, place ox 100 on room air. initial white blood cell count 14.8. CT of the brain showed extensive sinusitis early normal brain. Patient was admitted to the hospitalist service and started on azithromycin but this was changed to Unasyn. She was also given steroids and Afrin to help with the pain. He continued to have significant pain and sinus CT was performed which will be detailed below. ENT was contacted and gave the above recommendations. The next day the patient was feeling much better and ready for discharge. She was educated about the worrisome signs and symptoms to come back to emergency room for and was discharged stable condition with antibiotics and steroids. She is to follow-up with primary care physician and if she continues to have sinus problems she can follow up with ENT CT sinuses Rightward deviation spurring of the nasal septum Bilateral majo bullosa and interlamellar cell of the middle nasal turbinates; opacified interlamellar cell on the left Asymmetric soft tissue swelling of the left middle and inferior nasal turbinates Mild soft tissue thickening in the region of the right maxillary ostium and infundibulum Complete opacification of the left ostiomeatal unit Soft tissue thickening of the region of both frontoethmoid recesses Mild right and extensive left ethmoid air cell opacification Mild focal right maxillary sinus mucoperiosteal thickening; severe left maxillary mucoperiosteal thickening Complete opacification of left sphenoid sinus; mild mucoperiosteal thickening of the right sphenoid Time Spent with Patient Time attestation: Total time spent providing and/or coordinating discharge services:38 min Exam Narrative: General: Well developed well nourished patient in NAD HEENT: normocephalic, Facial pain mostly on the left side near the maxillary and ethmoid area. Normal ocular movements. Pain to the left temporal region as well Neck: supple Neuro: Alert and oriented x4. cranial nerves 2-12 intact. Equal strength the upper lower extremities 5/5. Able to do [id number]. no meningeal signs CV:RRR Resp: slightly decreased breath sounds, no crackles or wheezing Abd: Soft, non distended. No pain to palpation. Positive bowel sounds Extremities: No swelling, erythema, or pain to palpation. DS: Data Data Completed and Pending Labs on day of discharge: Labs from last 24 hours 06/24/21 06/24/21 06:36 06:36 WBC 10.9 H RBC 3.82 L Hgb 10.8 L Hct 33.4 L MCV 87.4 MCH 28.3 MCHC 32.3 RDW 13.2 Plt Count 234 MPV 10.6 H Sodium 134 L Potassium 3.2 L Chloride 105 Carbon Dioxide 25 Anion Gap 4 L BUN 3 L Creatinine 0.50
== END 2021-06-24 14:30 | disposition home or self-care (01) ==
LOC: ANHED 07:16 → ANH3MEDSUR 12:42
PROVIDERS: Physician Assistant; Admitting Provider Family Medicine; Emergency Provider General Practice; PCP Family Medicine; Visit Provider Student in an Organized Health Care Education/Training Program
DX: J01.30 Acute sphenoidal sinusitis, unspecified (principal); R51.9 Headache, unspecified; J45.909 Unspecified asthma, uncomplicated; F41.8 Other specified anxiety disorders; Z79.51 Long term (current) use of inhaled steroids; F17.210 Nicotine dependence, cigarettes, uncomplicated
CPT/HCPCS: 36415; 70450; 70486; 80048; 80053; 85025; 85027; 85610; 85730; 96361; 96365; 96367; 96375; 96376; 99285; A9270; G0378; J0131; J0295; J0456; J0696; J0780; J1100; J1170; J1200; J1885; J2405; J7030; J7512

== ENCOUNTER 2023-02-08 07:51 | Emergency (ER) | payer BC, SELFPAY ==
[2023-02-08] VITALS (12 sets, daily range): BP systolic 108–132; BP diastolic 59–96; PULSE 70–98; RESP 14–19; TEMP 37.1; O2SAT 98–99
--- NOTE | ~2023-02-08 | XR_ITS ---
EXAMINATION: XR chest 2V DATE: 02/08/2023 08:23 INDICATION: Chest pressure, asthma TECHNIQUE: Frontal and lateral views of the chest are obtained COMPARISON: 06/21/2021 FINDINGS: The lungs are free of acute opacities. No pleural effusion or pneumothorax. The cardiomedia stinal silhouette is normal. There is mild thoracic spondylosis. IMPRESSION: 1. No acute cardiopulmonary abnormality. Reviewed, dictated and finalized at location L.
--- NOTE | 2023-02-08 07:52 | ECG_ITS ---
Measurements Intervals [place] Rate: 83 P: 44 NC: 148 QRS: 14 QRSD: 97 T: 37 QT: 359 QTc: 423 Interpretive Statements SINUS RHYTHM INCOMPLETE RIGHT BUNDLE BRANCH BLOCK MINIMAL Q WAVES- INFERIOR LEADS BORDERLINE ECG COMPARED TO ECG 02/04/2021 09:39:57 NO SIGNIFICANT CHANGES Electronically Signed On 02-08-2023 8:04:33 CDT by Kraig Burleson D.O.
--- NOTE | 2023-02-08 08:01 | ED.CHESTPAIN ---
HPI - Chest Pain General Chief Complaint: Chest Pain Stated Complaint: Chest pain, SOB Time Seen by Provider: 02/08/23 08:01 History of Present Illness HPI narrative: Patient is a 47-year-old female with a history of migraines, asthma presenting with chest pain. Patient states that starting sometime last night she developed diffuse chest pain that radiated to her shoulders. States that it is worse with deep breathing and lying flat. States it feels improved with exertion. States that it has been associated with shortness of breath because she feels like taking a deep breath hurts. She denies leg swelling, palpitations, lightheadedness. States that she had a subjective fever yesterday. No cough, numbness or weakness, abdominal pain, nausea or vomiting, diarrhea, dysuria. Related Data Home Medications Medication Instructions Recorded Confirmed ergocalciferol (vitamin D2) 1,250 1,250 mcg PO 2XW 02/04/21 07/26/21 mcg (50,000 unit) capsule ubrogepant 100 mg tablet (Ubrelvy) 100 mg PO DAILY PRN Migraine 06/21/21 07/26/21 Headache albuterol sulfate 90 mcg/actuation 1 puff inhalation TID PRN 06/22/21 07/26/21 aerosol inhaler Shortness Of Breath Or Wheezing escitalopram oxalate 20 mg tablet 20 mg PO QAM 06/22/21 07/26/21 ondansetron 4 mg disintegrating 4 mg PO Q8H PRN Nausea 06/22/21 07/26/21 tablet topiramate 100 mg tablet 100 mg PO HS 06/22/21 07/26/21 ketorolac 10 mg tablet 10 mg PO Q6H PRN 07/26/21 07/26/21 Allergies Allergy/AdvReac Type Severity Reaction Status Date / Time butorphanol Allergy Mild Unknown Verified 06/22/21 12:37 Review of Systems Review of Systems: All systems reviewed & are unremarkable except as noted in HPI and below PMFSH Past Medical History Medical History Asthma COVID-19 vaccine series completed (~12/2020) Maderna Migraines Obese Smoker Surgical History Surgical History No significant past surgical history Family History Family History Father No significant past medical history Mother Hypertension Grandparent Breast cancer Social History Social History Social History: She lives in [facility] with her of 5 years. She has a 26-year-old son who is healthy. She has smoked a half a pack of cigarettes per day since she was a teenager. She used to intermittently drink heavy in her younger years but has not drank any alcohol in at least 10 years. She is employed as a banker. Primary care physician: Dr. Karoline Ellis Code status: Full code Surrogate decision maker: Smoking packs per day: 0.5 Smoking cigarettes per day: 10.0 Years smoked: 25 Smoking pack-years: 12.50 Smoking status: Current every day smoker Tobacco type: cigarettes Second hand tobacco smoke exposure: Yes (spouse) Alcohol intake: former Alcohol use details: Jodi reports quit 10 years ago Substance use: never Living arrangements: with family Occupation/Education: occupation Gender identity (if verbalized by the patient): Female Sexual Orientation (if Verbalized by the Patient): Straight or Heterosexual Spiritual care concerns: No Exam Narrative: GENERAL: Well-appearing, well-nourished, and in no acute distress. HEAD: Normocephalic, atraumatic. EYES: PERRLA and EOMI. ENT: Nares clear, no rhinorrhea or epistaxis. Mucous membranes moist. NECK: Supple. CHEST: Clear to auscultation. No respiratory distress. No wheezing appreciated HEART: Regular rate and rhythm. No murmur heard. Normal peripheral pulses. ABDOMEN: Soft, nontender, nondistended EXTREMITIES: Normal range of motion. No edema. SKIN: Warm, dry, no rash. NEURO: No focal deficits. Alert and oriented x3. PSYCH: Normal mood and affect. Course Vital Signs Vital signs: Vital Signs Temperature
[2023-02-08 08:12] LABS: Basophils Absolute Auto 0.1 K/mm3 (0.0-0.1); Basophils Percent Auto 0.7 % (0.2-1.2); Eosinophils Absolute Auto 0.4 K/mm3 (0-0.3); Eosinophils Percent Auto 3.6 % (0-4.4); Hematocrit 40.8 % (37.0-47.0); Hemoglobin 13.3 g/dL (12.0-15.0); Immature Granulocyte Absolute 0.04 K/mm3 (0.00-0.031); Immature Granulocyte Percent A 0.4 % (0-0.5); Lymphocytes Percent Auto 21.6 % (18.3-44.2); Mean Corpuscular HGB Conc 32.6 g/dl (32-36); Mean Corpuscular Hemoglobin 28.7 pg (26-34); Mean Corpuscular Volume 87.9 fl (80-100); Mean Platelet Volume 9.9 fl (7.4-10.4); Neutrophils Absolute Auto 6.2 K/mm3 (1.3-6.7); Neutrophils Percent Auto 63.7 % (45.5-73.1); Platelet Count Result 294 k/mm3 (150-375); Red Blood Count 4.64 M/mm3 (4.2-5.4); Red Cell Distribution Width 13.6 % (11.5-14.5); White Blood Count 9.7 K/mm3 (4.5-10.0)
[2023-02-08 08:24] LABS: Partial Thromboplastin Time 31.7 SECONDS (22.3-36.8); Prothrombin Time 12.9 Seconds (11.1-14.7)
[2023-02-08 08:28] LABS: Alanine Aminotransferase 23 U/L (6-35); Alkaline Phosphatase 51 U/L (38-126); Anion Gap 7 mmol/L (8-16); Aspartate Amino Transferase 24 U/L (14-36); Blood Urea Nitrogen 6 mg/dL (7-17); Calcium 8.4 mg/dL (8.4-10.2); Carbon Dioxide 25 mmol/L (22-30); Chloride 105 mmol/L (98-107); Estimated CRCL calculation 109 ml/min; Estimated Glomerular Filt Rate > 60; Glucose 88 mg/dL (65-110); Lipase 23 U/L (23-300); Potassium 3.6 mmol/L (3.4-5.0); Sodium 137 mmol/L (137-145)
[2023-02-08 08:35] LABS: Troponin I < 0.012 ng/mL (0.000-0.034)
[2023-02-08 09:02] LABS: D Dimer 0.42 ug/mL (<0.48)
[2023-02-08 09:26] LABS: Influenza A QL RT-PCR Negative (Negative); Influenza B QL RT-PCR Negative (Negative); SARS-CoV-2 RNA PCR Negative
[2023-02-08] MEDS: KETOROLAC 15 MG/ML VIAL (*BKC) IV PUSH (10:08)
[2023-02-08] MEDS: SODIUM CHLORIDE 0.9% IV 1,000 ML 999 ML IV CONT (10:09)
[2023-02-08 12:29] LABS: Troponin I < 0.012 ng/mL (0.000-0.034)
== END 2023-02-08 12:53 | disposition home or self-care (01) ==
PROVIDERS: Emergency Provider Emergency Medicine; PCP Family Medicine
DX: R07.89 Other chest pain (principal); Z20.822 Contact with and (suspected) exposure to COVID-19; J45.909 Unspecified asthma, uncomplicated; F17.210 Nicotine dependence, cigarettes, uncomplicated
CPT/HCPCS: 36415; 71046; 80053; 83690; 84484; 85025; 85380; 85610; 85730; 87636; 93005; 96365; 96366; 96375; 99284; J0131; J1885; J7030

== ENCOUNTER 2023-10-18 11:09 | Outpatient (CLI) | payer BC, SELFPAY ==
--- NOTE | ~2023-10-18 | XR_ITS ---
EXAMINATION: XR chest 2V 10/18/2023 11:25 INDICATION: Post viral cough. Asthma. PROCEDURE: 2 view chest COMPARISON: Comparison to multiple prior studies sequentially, with oldest reviewed study dated 06/2015. FINDINGS: The lungs are clear. The cardiomediastinal silhouette is within normal limits. There are no pleural effusions. There is no pneumothorax suspected. IMPRESSION: 1: NO ACUTE CARDIOPULMONARY DISEASE. Reviewed, dictated and finalized at location L. DING MAINTENANCE TECHNICIAN
== END 2023-10-18 11:10 | disposition home or self-care (01) ==
PROVIDERS: PCP Family Medicine; Visit Provider Family Medicine
DX: R05.3 Chronic cough (principal)
CPT/HCPCS: 71046

== ENCOUNTER 2024-05-22 11:57 | Emergency (ER) | payer BC, SELFPAY ==
[2024-05-22 12:17] VITALS: BP 126/87; PULSE 81; RESP 16; TEMP 36.8; O2SAT 100
--- NOTE | 2024-05-22 12:49 | ED.URI ---
HPI - URI/Sore Throat General Chief Complaint: Upper Respiratory Infection Stated Complaint: sore throat, cough Time Seen by Provider: 05/22/24 12:49 Source: patient Mode of arrival: ambulatory Limitations: no limitations History of Present Illness HPI Narrative: 49-year-old female presents with complaint of postnasal drainage, right-sided sore throat for 2 weeks. Afebrile. Patient reports right ear pain for the past 2 days. Not taking any [id number] medications to treat her symptoms. All systems reviewed and negative except as noted above. Related Data Home Medications Medication Instructions Recorded Confirmed ergocalciferol (vitamin D2) 1,250 1,250 mcg PO 2XW 02/04/21 07/26/21 mcg (50,000 unit) capsule ubrogepant 100 mg tablet (Ubrelvy) 100 mg PO DAILY PRN Migraine 06/21/21 07/26/21 Headache albuterol sulfate 90 mcg/actuation 1 puff inhalation TID PRN 06/22/21 07/26/21 aerosol inhaler Shortness Of Breath Or Wheezing escitalopram oxalate 20 mg tablet 20 mg PO QAM 06/22/21 07/26/21 ondansetron 4 mg disintegrating 4 mg PO Q8H PRN Nausea 06/22/21 07/26/21 tablet topiramate 100 mg tablet 100 mg PO HS 06/22/21 07/26/21 ketorolac 10 mg tablet 10 mg PO Q6H PRN 07/26/21 07/26/21 Allergies Allergy/AdvReac Type Severity Reaction Status Date / Time butorphanol Allergy Mild Unknown Verified 06/22/21 12:37 Review of Systems Review of Systems: CONSTITUTIONAL: Denies fever, chills, or sweats. EYES: Denies visual changes, redness, or discharge. ENT: Denies rhinorrhea, congestion . Reports sore throat, Postnasal drainage, right ear pain. CARDIOVASCULAR: Denies chest pain, palpitations, or edema. RESPIRATORY: Denies cough or dyspnea. GASTROINTESTINAL: Denies abdominal pain, nausea, vomiting, or diarrhea. GENITOURINARY: Denies dysuria or hematuria. SKIN: Denies rash or itching. MUSCULOSKELETAL: Denies back pain, joint pain, or myalgia. NEUROLOGIC: Denies headache, numbness, or weakness. PSYCHIATRIC: Denies anxiety or depression. All other systems reviewed are negative, except as documented in HPI. [facility] Past Medical History Medical History Asthma COVID-19 vaccine series completed (~12/2020) Maderna Migraines Obese Smoker Surgical History Surgical History No significant past surgical history Family History Family History Father No significant past medical history Mother Hypertension Grandparent Breast cancer Social History Social History Social History: She lives in [facility] with her of 5 years. She has a 26-year-old son who is healthy. She has smoked a half a pack of cigarettes per day since she was a teenager. She used to intermittently drink heavy in her younger years but has not drank any alcohol in at least 10 years. She is employed as a banker. Primary care physician: Dr. Karoline Ellis Code status: Full code Surrogate decision maker: Smoking packs per day: 0.5 Smoking cigarettes per day: 10.0 Years smoked: 25 Smoking pack-years: 12.50 Smoking status: Current every day smoker Tobacco type: cigarettes Second hand tobacco smoke exposure: Yes (spouse) Alcohol intake: former Alcohol use details: Jodi reports quit 10 years ago Substance use: never Living arrangements: with family Occupation/Education: occupation Gender identity (if verbalized by the patient): Female Sexual Orientation (if Verbalized by the Patient): Straight or Heterosexual Spiritual care concerns: No Comments At time of signature, agree with nursing past medical, surgical, social and family history. There is no relevant family history pertinent to the presenting complaint. Exam Narrative: GENERAL: This is a well-nourished, well-developed patient, in no cj
[2024-05-22 12:58] LABS: EDSTREPNEGPOS1 Presumptive Negative
== END 2024-05-22 13:08 | disposition home or self-care (01) ==
PROVIDERS: Emergency Provider Nurse Practitioner Family; PCP Nurse Practitioner Family
DX: J01.90 Acute sinusitis, unspecified (principal); H65.01 Acute serous otitis media, right ear; F17.210 Nicotine dependence, cigarettes, uncomplicated; J45.909 Unspecified asthma, uncomplicated; Z86.16 Personal history of COVID-19; E66.9 Obesity, unspecified; Z68.36 Body mass index [BMI] 36.0-36.9, adult
CPT/HCPCS: 87081; 87880; 99213; G0463

== ENCOUNTER 2024-12-11 13:15 | Emergency (ER) | payer BC, SELFPAY ==
[2024-12-11 13:25] VITALS: BP 124/74; PULSE 84; RESP 16; TEMP 36.6; O2SAT 99
--- NOTE | 2024-12-11 13:32 | ED.URI ---
HPI - URI/Sore Throat General Chief Complaint: Upper Respiratory Infection Stated Complaint: Sinus Time Seen by Provider: 12/11/24 13:33 Source: patient, RN notes reviewed and old records reviewed Mode of arrival: ambulatory Limitations: no limitations History of Present Illness HPI Narrative: patient presents with complaints of 10-14 days of sinus pain and pressure, congestion, postnasal drainage. She has intermittently had a hoarse voice, said she feels like this is somewhat resolved. She has tried all multiple [id number] medications with moderate relief. Says that at 1 point during illness she was feeling better, but has been worsening over the past few days. She is not in any distress. She denies any injury or trauma. She voices no other concerns or complaints today. Related Data Home Medications ?Medication ?Instructions ?Recorded ?Confirmed ?Last Taken ?Type ergocalciferol (vitamin D2) 1,250 1,250 mcg PO 2XW 02/04/21 11/13/24 Unknown History mcg (50,000 unit) capsule ubrogepant 100 mg tablet (Ubrelvy) 100 mg PO DAILY PRN Migraine 06/21/21 11/13/24 1 Day Ago History Headache ~06/21/21 albuterol sulfate 90 mcg/actuation 1 puff inhalation TID PRN 06/22/21 11/13/24 1 Day Ago History aerosol inhaler Shortness Of Breath Or Wheezing ~06/21/21 escitalopram oxalate 20 mg tablet 20 mg PO QAM 06/22/21 11/13/24 06/14/21 History ondansetron 4 mg disintegrating 4 mg PO Q8H PRN Nausea 06/22/21 11/13/24 Unknown History tablet topiramate 100 mg tablet 100 mg PO HS 06/22/21 11/13/24 05/31/21 History ketorolac 10 mg tablet 10 mg PO Q6H PRN pain 07/26/21 11/13/24 Unknown History Allergies Allergy/AdvReac Type Severity Reaction Status Date / Time butorphanol Allergy Mild Swelling Verified 12/11/24 13:18 Review of Systems Review of Systems: All systems reviewed & are unremarkable except as noted in HPI and below Constitutional: Constitutional: Reports no additional constitutional complaints, Reports headache(s) and Reports lethargy ENT: Reports system reviewed and no additional complaints, except as documented, Reports hoarseness, Reports nasal congestion, Reports nasal discharge, Reports sinus pain, Reports sinus pressure and Reports sore throat Cardiovascular: Cardiovascular: Reports no additional cardiovascular complaints Respiratory: Respiratory: Reports no additional respiratory complaints and Reports cough Gastrointestinal: Gastrointestinal: Reports no additional gastrointestinal complaints [facility] Past Medical History Medical History Asthma COVID-19 vaccine series completed (~12/2020) Maderna Migraines Obese Smoker Surgical History Surgical History No significant past surgical history Family History Family History Father No significant past medical history Mother Hypertension Grandparent Breast cancer Social History Social History Social History: She lives in [facility] with her of 5 years. She has a 26-year-old son who is healthy. She has smoked a half a pack of cigarettes per day since she was a teenager. She used to intermittently drink heavy in her younger years but has not drank any alcohol in at least 10 years. She is employed as a banker. Primary care physician: Dr. Karoline Ellis Code status: Full code Surrogate decision maker: Smoking packs per day: 0.5 Smoking cigarettes per day: 10.0 Years smoked: 30 Smoking pack-years: 15.00 Smoking status: Current every day smoker Tobacco type: cigarettes and e-cigarettes/vaping Second hand tobacco smoke exposure: Yes (spouse) Additional smoking assessment comments: QUIT SMOKING CIGARETTES 2021, NOW VAPES Alcohol intake: never Alcohol use details: Jodi reports quit 10 years ago Substance use: never Substance use type: does not use Living arrangements: with family Occupation/Education: occupation Gender identity (if verbalized by the patient): Female Sexual Orientation (if Verbalized by the Patient): Straight or Heterosexual Spiritual care concerns: No Comments At the time of my signature, I reviewed and agree with the nursing past medical, surgical, social, and family history. There is no relevant family history pertinent to the patient complaint. Exam Const: General: cooperative, no acute distress, alert and awake Orientation/consciousness: oriented to person, oriented to place and oriented to time HENMT: Head: normal to inspection Face and sinus: sinus tenderness Mouth: Yes moist mucous membranes Throat: posterior oropharynx abnormal erythema and postnasal drainage Resp: Effort & Inspection: normal respiratory effort and able to speak in complete sentences Auscultation: clear to auscultation bilaterally, no crackles, no rales, no rhonchi and no wheezes Cardio: Palpation: normal PMI Rate: regular rate Rhythm: regular rhythm Heart sounds: S1 normal heart sound present and S2 normal heart sound present Neuro: General: oriented to person, oriented to place and oriented to time Cranial nerves: Yes CN's II-XII intact bilaterally Psych: Appearance: grossly normal Thought process: Normal thought process present Insight: Good insight present (Psych) Judgement: Good judgement present (Psych) Course Course Level of Care: Express Care Visit Vital Signs Vital signs: Vital Signs Temperature 97.9 F 12/11/24 13:25 Pulse Rate 84 12/11/24 13:25 Respiratory Rate 16 12/11/24 13:25 Blood Pressure 124/74 12/11/24 13:25 Pulse Oximetry 99 12/11/24 13:25 Oxygen Delivery Room Air 12/11/24 13:25 Temperature 97.9 F 12/11/24 13:25 Pulse Rate 84 12/11/24 13:25 Respiratory Rate 16 12/11/24 13:25 Blood Pressure 124/74 12/11/24 13:25 Pulse Oximetry 99 12/11/24 13:25 Oxygen Delivery Room Air 12/11/24 13:25 Reviewed MDM - URI/Sore Throat MDM Narrative Medical decision making narrative: History and exam consistent with sinusitis. Patient nontoxic appearing, stable for discharge home with p.o. antibiotics, cough suppressant, prednisone. Follow with primary care provider. Emergency department for new or worse symptoms. Discharge instructions reviewed with patient, as well as provided in writing per nursing staff. The instructions also include specific and strict return/GO TO THE ER as well as f/u information. All questions have been answered, and the patient deny any further questions with discharge and discharge plan. Some parts of this dictation were generated by voice recognition software and may contain typographical and/or grammatical inaccuracies. Differential Diagnosis Differential diagnosis: Likely upper respiratory infection, otitis media, sinusitis, viral infection, bronchitis, influenza and pharyngitis Medical Records Attestation: I reviewed the patient's medical records. Discharge Plan Discharge Clinical Impression: Sinusitis, acute Qualifiers: Sinusitis location: frontal Recurrence: not specified as recurrent Qualified Code(s): J01.10 - Acute frontal sinusitis, unspecified Patient Disposition: Home, Self-Care Condition: Stable Instructions: Antibiotic Form, Sinusitis (ED) Additional Instructions: Take medications as prescribed. Follow with primary care provider. Emergency department for new or worse symptoms Patient Language: Kyrgyz Prescriptions: New prednisone 50 mg tablet 50 mg PO DAILY Qty: 5 0RF amoxicillin-pot clavulanate 875-125 mg tablet 1 tablet PO Q12H Qty: 20 0RF benzonatate 200 mg capsule 200 mg PO TID PRN (Reason: cough) Qty: 30 0RF No Action ergocalciferol (vitamin D2) 1,250 mcg (50,000 unit) capsule 1,250 mcg PO 2XW Rx Instructions: patient takes on mondays and fridays loratadine [Claritin] 10 mg tablet 10 mg PO DAILY Qty: 30 0RF fluticasone propionate [Flonase Allergy Relief] 50 mcg/actuation spray,suspension 2 spray intranasal DAILY Qty: 16 0RF Rx Instructions: administer into each nostril ketorolac 10 mg tablet 10 mg PO Q6H PRN (Reason: pain) Ubrelvy 100 mg tablet 100 mg PO DAILY PRN (Reason: Migraine Headache) ondansetron 4 mg tablet,disintegrating 4 mg PO Q8H PRN (Reason: Nausea) escitalopram oxalate 20 mg tablet 20 mg PO QAM albuterol sulfate 90 mcg/actuation HFA aerosol inhaler 1 puff INHALATION TID PRN (Reason: Shortness Of Breath Or Wheezing) topiramate 100 mg tablet 100 mg PO HS oxymetazoline [Nasal Decongestant (oxymetazl)] 0.05 % [place],Non-Aerosol 1 spray intranasal Q12HR 3 Days Qty: 15 0RF Follow-up/Referrals: Strickland,Adams Hanson APRN [Primary Care Provider] - 2 Weeks Stand Alone Forms: Work/School Release IP Time of Disposition: 14:05
== END 2024-12-11 14:10 | disposition home or self-care (01) ==
PROVIDERS: Emergency Provider Nurse Practitioner Family; PCP Nurse Practitioner Family
DX: J01.10 Acute frontal sinusitis, unspecified (principal); F17.290 Nicotine dependence, other tobacco product, uncomplicated; J45.909 Unspecified asthma, uncomplicated; E66.9 Obesity, unspecified; Z68.37 Body mass index [BMI] 37.0-37.9, adult
CPT/HCPCS: 99213; G0463

== ENCOUNTER 2025-04-21 00:23 | Day surgery (SDC) | payer BC, SELFPAY ==
[2024-11-13 08:34] VITALS: BMI 37.2
--- NOTE | 2025-04-10 14:15 | PC.NURSE ---
Spoke with patient in regards to rescheduled procedure. Updated patient with new dates and times. Patient denies any changes to health history or allergies. Updated medication list. Answered all questions at this time. Emailing new prep instructions per patients request.
[2025-04-21 09:10] VITALS: BP 127/56; PULSE 80; RESP 18; TEMP 36.6; O2SAT 100
[2025-04-21] MEDS: LACTATED RINGERS 1,000 ML 150 ML IV CONT (09:23)
--- NOTE | 2025-04-21 09:30 | P.PNAN_ITS ---
Anes - Initial Pre Proc Eval Procedure: Operation Date: 04/21/25 10:30 Proposed Procedures p Screening Colonoscopy - Yoel Oakes MD Date/Time: 04/21/25 09:30 Surgeon: Yoel Oakes MD Pre Op Diagnosis: neoplasm screening Patient Data Age: 50 Gender: F Height: 1.6 m Weight: 97.3 kg Last Vital Signs Temp 36.6 C 04/21/25 09:10 Pulse 80 04/21/25 09:10 Resp 18 04/21/25 09:10 BP 127/56 L 04/21/25 09:10 Pulse Ox 100 04/21/25 09:10 O2 Del Method Room Air 04/21/25 09:10 Allergies Allergy/AdvReac Type Severity Reaction Status Date / Time butorphanol Allergy Mild Swelling Verified 04/21/25 09:08 Home Medications ?Medication ?Instructions ?Recorded ?Confirmed ?Type ergocalciferol (vitamin D2) 1,250 1,250 mcg PO 2XW 02/04/21 11/13/24 History mcg (50,000 unit) capsule ubrogepant 100 mg tablet (Ubrelvy) 100 mg PO DAILY PRN Migraine 06/21/21 11/13/24 History Headache albuterol sulfate 90 mcg/actuation 1 puff inhalation TID PRN 06/22/21 11/13/24 History aerosol inhaler Shortness Of Breath Or Wheezing escitalopram oxalate 20 mg tablet 20 mg PO QAM 06/22/21 11/13/24 History ondansetron 4 mg disintegrating 4 mg PO Q8H PRN Nausea 06/22/21 11/13/24 History tablet topiramate 100 mg tablet 100 mg PO HS 06/22/21 11/13/24 History oxymetazoline 0.05 % nasal spray 1 spray intranasal Q12HR 3 days 06/24/21 11/13/24 Rx (Nasal Decongestant #15 mL (oxymetazoline)) ketorolac 10 mg tablet 10 mg PO Q6H PRN pain 07/26/21 11/13/24 History fluticasone propionate 50 2 spray intranasal DAILY #16 grams 05/22/24 11/13/24 Rx mcg/actuation nasal spray,suspension (Flonase Allergy Relief) loratadine 10 mg tablet (Claritin) 10 mg PO DAILY #30 tabs 05/22/24 11/13/24 Rx Patient hx anesthesia problems: none Family hx anesthesia problems: none Results Review: All pre-operative results and documents have been reviewed as part of the pre-operative evaluation. FORMERLY [facility], [facility] Past Medical History Medical History Asthma COVID-19 vaccine series completed (~12/2020) Maderna Migraines Obese Smoker Surgical History Surgical History No significant past surgical history Family History Family History Father No significant past medical history Mother Hypertension Grandparent Breast cancer Social History Social History Social History: She lives in [facility] with her of 5 years. She has a 26-year-old son who is healthy. She has smoked a half a pack of cigarettes per day since she was a teenager. She used to intermittently drink heavy in her younger years but has not drank any alcohol in at least 10 years. She is employed as a banker. Primary care physician: Dr. Karoline Ellis Code status: Full code Surrogate decision maker: Smoking packs per day: 0.5 Smoking cigarettes per day: 10.0 Years smoked: 25 Smoking pack-years: 12.50 Smoking status: Current every day smoker Tobacco type: cigarettes Second hand tobacco smoke exposure: Yes (spouse) Additional smoking assessment comments: QUIT SMOKING CIGARETTES 2021, NOW VAPES Alcohol intake: former Alcohol use details: Jodi reports quit 10 years ago Substance use: never Substance use type: does not use Living arrangements: with family Occupation/Education: occupation Gender identity (if verbalized by the patient): Female Sexual Orientation (if Verbalized by the Patient): Straight or Heterosexual Spiritual care concerns: No Anes - Eval Final PreProcedure Day of Procedure 04/21/25 09:30 Patient weight: obese Heart: regular rate and rhythm Lungs: clear to auscultation Airway: Mallampati scale class II Neurological: alert and oriented Last oral intake: >/= 8 hours ASA classification: II Emergent: no Anesthetic plan: proceed Anesthesia type and monitoring: general GIVS and standard monitoring Results Review: All pre-operative results and documents have been reviewed as part of the pre- operative evaluation. Informed Consent: The patient's anesthetic plan and its attendant risks and benefits were discussed with the patient/family/POA. Questions were solicited and answers provided to the satisfaction of the patient/family/POA.
--- NOTE | 2025-04-21 09:45 | P.HP_ITS ---
History of Present Illness History of Present Illness Consent: Risks, benefits, and alternatives have been discussed and questions answered. Patient agrees to proceed with procedure. Chief complaint: neoplasm screening Narrative: Jodi Appiah is a 50 year old female here for first screening colonoscopy Review of Systems Review of Systems: All systems reviewed & are unremarkable except as noted in HPI and below PMFSH Past Medical History Medical History Colon cancer screening COVID-19 vaccine series completed (~12/2020) Maderna Migraines Obese Asthma Smoker Surgical History Surgical History No significant past surgical history Family History Family History Father No significant past medical history Mother Hypertension Grandparent Breast cancer Social History Social History Social History: She lives in [facility] with her of 5 years. She has a 26-year-old son who is healthy. She has smoked a half a pack of cigarettes per day since she was a teenager. She used to intermittently drink heavy in her younger years but has not drank any alcohol in at least 10 years. She is employed as a banker. Primary care physician: Dr. Karoline Ellis Code status: Full code Surrogate decision maker: Smoking packs per day: 0.5 Smoking cigarettes per day: 10.0 Years smoked: 25 Smoking pack-years: 12.50 Smoking status: Current every day smoker Tobacco type: cigarettes Second hand tobacco smoke exposure: Yes (spouse) Additional smoking assessment comments: QUIT SMOKING CIGARETTES 2021, NOW VAPES Alcohol intake: former Alcohol use details: Jodi reports quit 10 years ago Substance use: never Substance use type: does not use Living arrangements: with family Occupation/Education: occupation Gender identity (if verbalized by the patient): Female Sexual Orientation (if Verbalized by the Patient): Straight or Heterosexual Spiritual care concerns: No Meds Home Medications and Allergies Home Medications ?Medication ?Instructions ?Recorded ?Confirmed ?Type ergocalciferol (vitamin D2) 1,250 1,250 mcg PO 2XW 02/04/21 11/13/24 History mcg (50,000 unit) capsule ubrogepant 100 mg tablet (Ubrelvy) 100 mg PO DAILY PRN Migraine 06/21/21 11/13/24 History Headache albuterol sulfate 90 mcg/actuation 1 puff inhalation TID PRN 06/22/21 11/13/24 History aerosol inhaler Shortness Of Breath Or Wheezing escitalopram oxalate 20 mg tablet 20 mg PO QAM 06/22/21 11/13/24 History ondansetron 4 mg disintegrating 4 mg PO Q8H PRN Nausea 06/22/21 11/13/24 History tablet topiramate 100 mg tablet 100 mg PO HS 06/22/21 11/13/24 History oxymetazoline 0.05 % nasal spray 1 spray intranasal Q12HR 3 days 06/24/21 11/13/24 Rx (Nasal Decongestant #15 mL (oxymetazoline)) ketorolac 10 mg tablet 10 mg PO Q6H PRN pain 07/26/21 11/13/24 History fluticasone propionate 50 2 spray intranasal DAILY #16 grams 05/22/24 11/13/24 Rx mcg/actuation nasal spray,suspension (Flonase Allergy Relief) loratadine 10 mg tablet (Claritin) 10 mg PO DAILY #30 tabs 05/22/24 11/13/24 Rx Allergies Allergy/AdvReac Type Severity Reaction Status Date / Time butorphanol Allergy Mild Swelling Verified 04/21/25 09:08 Vital Signs Vital Signs - 24 hr 04/21/25 09:10 Temperature 97.9 F Pulse Rate 80 Respiratory Rate 18 Blood Pressure 127/56 L Pulse Oximetry 100 Oxygen Delivery Room Air Exam Const: General: comfortable and no acute distress HENMT: Face/Nose/Sinus: Normal nares present Eyes: General: appearance normal, both eyes and all related structures Neck: Neck: no JVD Resp: Auscultation: clear to auscultation bilaterally Cardio: Rate: regular rate Rhythm: regular rhythm GI: Inspection: non-distended GI Palp: Yes Soft to palpation Skin: General skin exam: normal color Neuro: General: gait normal Speech: normal speech Extrem: General: normal to inspection Psych: Mental Status: mental status grossly normal Assessment and Plan Assessment and plan (1) Colon cancer screening: Code(s): Z12.11 - Encounter for screening for malignant neoplasm of colon Status: Acute Assessment and Plan: colonoscopy
--- NOTE | 2025-04-21 10:00 | S_PTH ---
PATIENT: Jodi Appiah LOC: [facility]#:[id number] AGE/SX: 50/F ROOM: RE04/21/[address]: Yoel Oakes MD : 1975 BED: DIS: 04/21/2025 SPEC #: [id number] RECD: 04/21/25 11:08 STATUS: HEBERT KENDRICK #: [id number] JOVITA: 04/21/25 10:[address]: Yoel Oakes DEPT: [facility] RECD BY: Akiko Jovel ENTERED: 04/21/25 11:08 SP TYPE: Surgical OTHR DR: Mary Nichols, ACCOUNTS ADMINISTRATOR Tissues: A - Colon Polypectomy Procedures: Hematoxylin and Eosin Stain Gross and Microscopic Level 4
[2025-04-21 10:01] VITALS: BP 98/66; PULSE 71; RESP 21; O2SAT 98
[2025-04-21 10:02] LABS: BEDSIDEPREGUCG Negative (Negative)
[2025-04-21 10:11] VITALS: BP 103/66; PULSE 65; RESP 21; O2SAT 100
[2025-04-21 10:21] VITALS: BP 110/53; PULSE 60; RESP 17; O2SAT 100
== END 2025-04-21 10:31 | disposition home or self-care (01) ==
PROVIDERS: PCP Nurse Practitioner Family; Referring Provider Nurse Practitioner; Visit Provider Internal Medicine Gastroenterology
PROC: 0DJD8ZZ Inspection of Lower Intestinal Tract, Via Natural or Artificial Opening Endoscopic (ICD-10-PCS; CPT 45378; principal; 2025-04-21 10:30)
DX: Z12.11 Encounter for screening for malignant neoplasm of colon (principal); D12.4 Benign neoplasm of descending colon; J45.909 Unspecified asthma, uncomplicated; F17.290 Nicotine dependence, other tobacco product, uncomplicated; E66.9 Obesity, unspecified; Z68.38 Body mass index [BMI] 38.0-38.9, adult; Z79.51 Long term (current) use of inhaled steroids; Z80.3 Family history of malignant neoplasm of breast
CPT/HCPCS: 45385; 88305; J2704; J7120